=== PATIENT | female | born 1945 | race Caucasian/White ===

== ENCOUNTER → 2016-03-29 | Outpatient (REF) | payer MEDICARE, OTHER ==
[~2016-03-29] MED LIST: /WARF5TA PO; ASPI81TA85 PO; BISO5TAB5 PO; CALTTAB10 PO; D3-5CAP PO; FOLI1TAB86 PO; HYDR12.55 PO; HYDR200T2 PO; IMIP25TA2 PO; LEFL20TA PO; LOSA100T36 PO; OXYCO5TA PO; SPIR25TA2 PO; STOO100C PO; TRIL135C PO; VITAD1000T PO; XARE20TA PO; topiramate PO
[2016-03-29 14:40] LABS: PERCENT SATURATION 13.2 % (13.2-37.4)
[2016-03-30 10:26] LABS: CARCINOEMBRYONIC ANTIGEN 4.2 NG/ML (<2.5)
== END ==
LOC: M LAB REF 13:37
PROVIDERS: ATTEND Internal Medicine Medical Oncology
DX: C18.9 Malignant neoplasm of colon, unspecified (principal)

== ENCOUNTER → 2016-04-10 | Outpatient (REF) | payer MEDICARE, OTHER | LOC: M LAB REF 11:56 | PROVIDERS: ATTEND Nurse Practitioner Adult Health | DX: L40.59 Other psoriatic arthropathy (principal) ==

== ENCOUNTER → 2016-06-27 | Outpatient (REF) | payer MEDICARE, OTHER ==
[2016-06-27 13:46] LABS: FERRITIN 161 NG/ML (8-252); PERCENT SATURATION 15.5 % (13.2-37.4); TOTAL IRON BINDING CAPACITY 387 UG/DL (250-450); TOTAL PROTEIN 6.7 GM/DL (6.4-8.2)
[2016-06-27 13:54] LABS: VITAMIN B12 LEVEL 588 PG/ML
[2016-06-27 13:55] LABS: FOLATE 8.7 NG/ML
[2016-06-28 13:55] LABS: ALBUMIN 3.86 GM/DL (3.29-5.55); ALBUMIN % 57.6 % (55.8-66.1); GAMMA GLOBULIN % 12.2 % (11.1-18.8)
[2016-06-29 08:45] LABS: CARCINOEMBRYONIC ANTIGEN 4.9 NG/ML (<2.5)
== END ==
LOC: M LAB REF 13:04
PROVIDERS: ATTEND Internal Medicine Medical Oncology
DX: D64.9 Anemia, unspecified (principal); C18.9 Malignant neoplasm of colon, unspecified

== ENCOUNTER → 2016-06-28 | Outpatient (REF) | payer MEDICARE, OTHER | LOC: M LAB REF 11:07 | PROVIDERS: ATTEND Nurse Practitioner Adult Health | DX: R19.7 Diarrhea, unspecified (principal) ==

== ENCOUNTER → 2016-09-27 | Outpatient (REF) | payer MEDICARE, OTHER ==
[~2016-09-27] MED LIST changes: +AMLO25TA PO; +FERR325T3 PO; +VITA1CAP2 PO
[2016-09-27 17:43] LABS: PERCENT SATURATION 12.1 % (13.2-45.0)
[2016-09-28 11:50] LABS: CARCINOEMBRYONIC ANTIGEN 5.2 NG/ML (<2.5)
== END ==
LOC: M LAB REF 16:16
PROVIDERS: ATTEND Internal Medicine Medical Oncology
DX: C18.9 Malignant neoplasm of colon, unspecified (principal)

== ENCOUNTER → 2016-10-07 | Outpatient (CLI) | payer MEDICARE, OTHER ==
[2016-10-07 14:11] LABS: BASO % 0.8 % (0.0-1.0); LARGE UNSTAINED CELL # 0.1 K/mm3 (0.0-0.4); LARGE UNSTAINED CELL % 1.3 % (0.0-4.0); LYMPH # 0.5 K/mm3 (1.5-4.5); MEAN CORPUSCULAR VOLUME 103.1 fl (80.0-96.0); MONO # 0.3 K/mm3 (0.0-0.8); MONO % 4.8 % (0.0-5.0); NEUTROPHILS # 4.6 K/mm3 (1.8-7.7); NEUTROPHILS % 84.1 % (36.0-66.0); PLATELET COUNT, AUTOMATED 315 k/mm3 (150-450); RED CELL DISTRIBUTION WIDTH 13.1 % (11.5-14.5); WHITE BLOOD COUNT 5.5 K/mm3 (4.0-10.0)
[2016-10-07 14:42] LABS: ALBUMIN 3.7 GM/DL (3.2-5.2); ALBUMIN/GLOBULIN RATIO 1.06 (1.00-1.93); ALKALINE PHOSPHATASE 57 U/L (45-117); ALT/SGPT 25 U/L (12-78); ANION GAP 9 MEQ/L (8-16); AST/SGOT 23 U/L (15-37); BILIRUBIN,TOTAL 0.2 MG/DL (0.2-1.0); BLOOD UREA NITROGEN 31 MG/DL (7-18); CALCIUM LEVEL 8.8 MG/DL (8.8-10.2); CARBON DIOXIDE LEVEL 25 MEQ/L (21-32); CHLORIDE LEVEL 114 MEQ/L (98-107); CREATININE FOR GFR 1.21 MG/DL (0.55-1.02); GLOMERULAR FILTRATION RATE 47.1 (>45); GLUCOSE, FASTING 107 MG/DL (80-110); POTASSIUM SERUM 4.9 MEQ/L (3.5-5.1); SODIUM LEVEL 148 MEQ/L (136-145); TOTAL PROTEIN 7.2 GM/DL (6.4-8.2)
== END ==
LOC: M WUC 13:12
PROVIDERS: ATTEND Physician Assistant
DX: R42 Dizziness and giddiness (principal)

== ENCOUNTER → 2016-12-28 | Outpatient (REF) | payer MEDICARE, OTHER ==
[2016-12-28 14:24] LABS: PERCENT SATURATION 20.6 % (13.2-45.0)
== END ==
LOC: M LAB REF 13:07
PROVIDERS: ATTEND Internal Medicine Medical Oncology
DX: C18.9 Malignant neoplasm of colon, unspecified (principal)

== ENCOUNTER → 2017-05-30 | Outpatient (REF) | payer MEDICARE, OTHER ==
[2017-05-30 14:32] LABS: FERRITIN 104 NG/ML (8-252); IRON (FE) 38 UG/DL (50-170); PERCENT SATURATION 15.1 % (13.2-45.0); TOTAL IRON BINDING CAPACITY 252 UG/DL (250-450)
[2017-05-31 11:04] LABS: CARCINOEMBRYONIC ANTIGEN 4.6 NG/ML (<2.5)
== END ==
LOC: M LAB REF 13:25
DX: C18.9 Malignant neoplasm of colon, unspecified (principal)
CPT/HCPCS: 82378

== ENCOUNTER → 2017-06-21 | Outpatient (REF) | payer MEDICARE, OTHER ==
[2017-06-27 00:08] LABS: CALPROTECTIN STOOL <16 ug/g (0-120); FATS NEUTRAL Normal (.); FATS TOTAL Normal (.)
== END ==
LOC: M LAB REF 10:22
DX: D50.9 Iron deficiency anemia, unspecified (principal); Z85.038 Personal history of other malignant neoplasm of large intestine; K52.839 Microscopic colitis, unspecified; K25.9 Gastric ulcer, unspecified as acute or chronic, without hemorrhage or perforation; K21.9 Gastro-esophageal reflux disease without esophagitis; R14.1 Gas pain; R19.7 Diarrhea, unspecified; R12 Heartburn
CPT/HCPCS: 82705

== ENCOUNTER → 2017-07-22 | Outpatient (CLI) | payer MEDICARE, OTHER ==
[2017-07-22 10:28] LABS: ANION GAP 7 MEQ/L (8-16); BLOOD UREA NITROGEN 28 MG/DL (7-18); CALCIUM LEVEL 8.4 MG/DL (8.8-10.2); CARBON DIOXIDE LEVEL 26 MEQ/L (21-32); CHLORIDE LEVEL 112 MEQ/L (98-107); CREATININE FOR GFR 1.41 MG/DL (0.55-1.30); GLOMERULAR FILTRATION RATE 39.4 (>45); GLUCOSE, FASTING 93 MG/DL (70-100); POTASSIUM SERUM 4.2 MEQ/L (3.5-5.1); SODIUM LEVEL 145 MEQ/L (136-145)
== END ==
LOC: M LAB 09:07
DX: N18.3 Chronic kidney disease, stage 3 (moderate) (principal)
CPT/HCPCS: 80048

== ENCOUNTER → 2017-08-29 | Outpatient (REF) | payer MEDICARE, OTHER ==
[2017-08-29 14:41] LABS: FERRITIN 152 NG/ML (8-252); IRON (FE) 48 UG/DL (50-170); PERCENT SATURATION 19.8 % (13.2-45.0); TOTAL IRON BINDING CAPACITY 243 UG/DL (250-450)
[2017-08-30 10:07] LABS: CARCINOEMBRYONIC ANTIGEN 4.3 NG/ML (<2.5)
== END ==
LOC: M LAB REF 13:35
DX: C18.7 Malignant neoplasm of sigmoid colon (principal); C64.9 Malignant neoplasm of unspecified kidney, except renal pelvis
CPT/HCPCS: 82378

== ENCOUNTER → 2017-09-05 | Outpatient (CLI) | payer MEDICARE, OTHER ==
[~2017-09-05] MED LIST changes: -/WARF5TA PO; -AMLO25TA PO; -ASPI81TA85 PO; -BISO5TAB5 PO; -CALTTAB10 PO; -D3-5CAP PO; -FERR325T3 PO; -FOLI1TAB86 PO; +GASTROGRAFIN SOLUTION 30ML (Q9963) As Ordered; -HYDR12.55 PO; -HYDR200T2 PO; -IMIP25TA2 PO; +ISOVUE-370 76% 100ML VIAL (Q9967) As Ordered; -LEFL20TA PO; -LOSA100T36 PO; -OXYCO5TA PO; -SPIR25TA2 PO; -STOO100C PO; -TRIL135C PO; -VITA1CAP2 PO; -VITAD1000T PO; -XARE20TA PO; -topiramate PO
== END ==
LOC: M RAD 13:13
DX: C18.9 Malignant neoplasm of colon, unspecified (principal)
CPT/HCPCS: Q9963

== ENCOUNTER 2018-01-23 01:39 | Emergency (ER) | payer MEDICARE, OTHER ==
[2018-01-23 02:15] LABS: BASO # 0.1 10^3/uL (0.0-0.2); BASO % 0.5 % (0.0-1.0); EOS # 0.1 10^3/uL (0.0-0.50); EOS % 0.7 % (0.0-3.0); HEMATOCRIT 37.9 % (36.0-47.0); HEMOGLOBIN 11.6 g/dl (12.0-15.5); IMMATURE GRANULOCYTE % 0.6 % (0-3.0); LYMPH # 0.7 10^3/uL (1.5-4.5); MEAN CORPUSCULAR HEMOGLOBIN 31.4 pg (27.0-33.0); MEAN CORPUSCULAR HGB CONC 30.6 g/dl (32.0-36.5); MEAN CORPUSCULAR VOLUME 102.4 fl (80.0-96.0); MONO # 0.4 10^3/uL (0.0-0.8); NEUTROPHILS # 8.4 10^3/uL (1.8-7.7); NEUTROPHILS % 87.2 % (36.0-66.0); PLATELET COUNT, AUTOMATED 401 10^3/uL (150-450); RED CELL DISTRIBUTION WIDTH 12.7 % (11.5-14.5); WHITE BLOOD COUNT 9.6 10^3/uL (4.0-10.0)
[2018-01-23] MEDS: NS 500 ML IV (02:30)
[2018-01-23] MEDS: METOCLOPRAMIDE INJ 10MG/2ML VIAL (J2765) IV (02:30)
[2018-01-23] MEDS: MORPHINE 4 MG/ML 1ML VIAL/SYRINGE (J2270) IV (02:30)
[2018-01-23 02:37] LABS: INR 1.17; PROTHROMBIN TIME 15.1 SECONDS (12.1-14.4)
[2018-01-23 02:46] LABS: ALBUMIN 3.7 GM/DL (3.2-5.2); ALKALINE PHOSPHATASE 107 U/L (45-117); ALT/SGPT 21 U/L (12-78); ANION GAP 9 MEQ/L (8-16); AST/SGOT 21 U/L (7-37); BILIRUBIN,DIRECT < 0.1 MG/DL (0.0-0.2); BILIRUBIN,TOTAL 0.2 MG/DL (0.2-1.0); BLOOD UREA NITROGEN 22 MG/DL (7-18); CALCIUM LEVEL 8.8 MG/DL (8.8-10.2); CARBON DIOXIDE LEVEL 23 MEQ/L (21-32); CHLORIDE LEVEL 108 MEQ/L (98-107); CPK CREATINE PHOSPHOKINASE 174 U/L (26-192); CREATININE FOR GFR 1.18 MG/DL (0.55-1.30); GLOMERULAR FILTRATION RATE 48.2 (>39); GLUCOSE, FASTING 141 MG/DL (70-100); LIPASE 168 U/L (73-393); MB/CK RELATIVE INDEX 2.64 (< OR =4); SODIUM LEVEL 140 MEQ/L (136-145); TOTAL PROTEIN 7.4 GM/DL (6.4-8.2); TROPONIN I < 0.02 NG/ML (< 0.10)
[2018-01-23] MEDS ORDERED: ISOVUE-370 76% 100ML VIAL (Q9967) As Ordered (02:53)
[2018-01-23] MEDS ORDERED: traMADol 50 MG TAB (BULK 4 TAB ED) PO (04:15)
[2018-01-23] MEDS: LORazepam 2 MG/ML VIAL (J2060) IV (04:18)
== END 2018-01-23 04:24 | disposition home or self-care (01) ==
LOC: M ED 01:39
DX: S29.012A Strain of muscle and tendon of back wall of thorax, initial encounter (principal); X50.9XXA Other and unspecified overexertion or strenuous movements or postures, initial encounter; Y92.9 Unspecified place or not applicable; Y93.H1 Activity, digging, shoveling and raking; Y99.9 Unspecified external cause status; I10 Essential (primary) hypertension; K21.9 Gastro-esophageal reflux disease without esophagitis; D64.9 Anemia, unspecified; Z86.73 Personal history of transient ischemic attack (TIA), and cerebral infarction without residual deficits; Z86.718 Personal history of other venous thrombosis and embolism; Z85.038 Personal history of other malignant neoplasm of large intestine; L40.52 Psoriatic arthritis mutilans; N28.9 Disorder of kidney and ureter, unspecified; Z79.82 Long term (current) use of aspirin; Z79.899 Other long term (current) drug therapy; Z88.0 Allergy status to penicillin; Z88.2 Allergy status to sulfonamides; Z88.1 Allergy status to other antibiotic agents; Z88.8 Allergy status to other drugs, medicaments and biological substances; Z91.89 Other specified personal risk factors, not elsewhere classified
CPT/HCPCS: J2270

== ENCOUNTER → 2018-01-27 | Outpatient (REF) | payer MEDICARE, OTHER ==
[~2018-01-27] MED LIST changes: +/WARF5TA PO; +AMLO25TA PO; +ASPI81CH32 PO; +ASPI81TA85 PO; +BISO5TAB5 PO; +CALTTAB10 PO; +CYAN1000VL IM; +D 10CHW PO; +D3-5CAP PO; +DOXA1TAB41 PO; +FERR325T3 PO; +FOLI1TAB86 PO; +FURO20TA2 PO; -GASTROGRAFIN SOLUTION 30ML (Q9963) As Ordered; +HYDR12.55 PO; +HYDR200T2 PO; +IMIP25TA2 PO; +IMIP50TA3 PO; -ISOVUE-370 76% 100ML VIAL (Q9967) As Ordered; +LEFL20TA PO; +LOSA100T36 PO; +LOSA50TA73 PO; +OTEZ1TAB3 PO; +OXYC1TAB23 PO; +OXYCO5TA PO; +PANT20TA2 PO; +PROC10TA4 PO; +SPIR-10 PO; +SPIR25TA2 PO; +STOO100C PO; +TRIL135C PO; +VITA1CAP2 PO; +VITA250T50 PO; +VITAD1000T PO; +XARE20TA PO; +ZOFR4TAB14 SL; +topiramate PO
== END ==
LOC: M LAB REF 09:41
PROVIDERS: ATTEND Nurse Practitioner Adult Health
DX: R50.9 Fever, unspecified (principal)

== ENCOUNTER → 2018-04-24 | Outpatient (REF) | payer MEDICARE, OTHER ==
[~2018-04-24] MED LIST changes: -LOSA50TA73 PO; +LOSA50TA88 PO
== END ==
LOC: M LAB REF 12:27
PROVIDERS: ATTEND Physician Assistant
DX: R19.7 Diarrhea, unspecified (principal); R14.1 Gas pain; R14.0 Abdominal distension (gaseous); K52.839 Microscopic colitis, unspecified; K62.5 Hemorrhage of anus and rectum; K21.9 Gastro-esophageal reflux disease without esophagitis

== ENCOUNTER → 2018-05-13 | Outpatient (CLI) | payer MEDICARE, OTHER ==
[~2018-05-13] MED LIST changes: -/WARF5TA PO; -ASPI81CH32 PO; +ASPI81CH33 PO; +COUM1TAB17 PO; +OXYC-517 PO; -OXYCO5TA PO; +VITA-183 PO; -VITA1CAP2 PO
[2018-05-13 12:17] LABS: BASO % 0.4 % (0.0-1.0); EOS # 0.2 10^3/uL (0.0-0.50); EOS % 2.2 % (0.0-3.0); HEMATOCRIT 37.5 % (36.0-47.0); HEMOGLOBIN 11.4 g/dl (12.0-15.5); LYMPH # 0.8 10^3/uL (1.5-4.5); LYMPH % 11.2 % (24.0-44.0); MEAN CORPUSCULAR HEMOGLOBIN 31.2 pg (27.0-33.0); MEAN CORPUSCULAR HGB CONC 30.4 g/dl (32.0-36.5); MEAN CORPUSCULAR VOLUME 102.7 fl (80.0-96.0); MONO # 0.5 10^3/uL (0.0-0.8); MONO % 6.6 % (0.0-5.0); NEUTROPHILS # 5.8 10^3/uL (1.8-7.7); NEUTROPHILS % 79.1 % (36.0-66.0); PLATELET COUNT, AUTOMATED 294 10^3/uL (150-450); RED BLOOD COUNT 3.65 10^6/uL (4.00-5.40); WHITE BLOOD COUNT 7.3 10^3/uL (4.0-10.0)
[2018-05-13 12:27] LABS: INR 2.25; PROTHROMBIN TIME 25.3 SECONDS (12.1-14.4)
[2018-05-13 12:28] LABS: PARTIAL THROMBOPLASTIN TIME 44.7 SECONDS (25.4-37.6)
[2018-05-13 12:47] LABS: CREATININE FOR GFR 1.55 MG/DL (0.55-1.30); GLOMERULAR FILTRATION RATE 35.2 (>39); POTASSIUM SERUM 4.3 MEQ/L (3.5-5.1)
== END ==
LOC: M WUC 10:33
PROVIDERS: ATTEND Surgery Vascular Surgery
DX: Z01.818 Encounter for other preprocedural examination (principal); I73.9 Peripheral vascular disease, unspecified; D69.8 Other specified hemorrhagic conditions

== ENCOUNTER → 2018-10-01 | Outpatient (CLI) | payer MEDICARE, OTHER ==
[~2018-10-01] MED LIST changes: +AMLO5TAB6 PO; +BISO10TA10 PO; +ISOVUE-370 76% 100ML VIAL (Q9967) As Ordered ONE
--- NOTE | 2018-10-01 17:25 | REPVR ---
EXAM: CT Neck With Contrast EXAM DATE/TIME: 10/01/2018 3:29 PM CLINICAL HISTORY: 72 years old, female; Condition or disease; Cancer; Other: Tongue; Additional info: Malignant neoplasm of border of tongue TECHNIQUE: Imaging protocol: Axial computed tomography images of the neck with intravenous contrast. Radiation optimization: All CT scans at this facility use at least one of these dose optimization techniques: automated exposure control; mA and/or kV adjustment per patient size (includes targeted exams where dose is matched to clinical indication); or iterative reconstruction. Contrast material: ISOVUE 370; Contrast volume: 75 ml; Contrast route: IV; COMPARISON: PT PET/CT Skull/mid thigh 02/01/2016 5:37 PM FINDINGS: The patient's head is slightly tilted for the exam Nasopharynx: Normal. Oropharynx: There is asymmetric thickening of the left lateral margin of the tongue. There is loss of the normal fat plane the hyoglossus from the genioglossus on the left Hypopharynx: Normal. Larynx: This is effacement of the left vallecula at the base of the tongue. Retropharyngeal space: Normal. Submandibular/Parotid glands: Normal. Glands are normal in size. Thyroid: 1.6 cm nodule with a calcified rim in the right lobe of the thyroid without significant change from previous. Lymph nodes: Normal. No lymphadenopathy. Trachea: Visualized trachea is unremarkable. Lungs: Normal as visualized. Bones/joints: Generalized narrowing of the intervertebral disc spaces of the cervical spine with anterior and posterior marginal osteophytes, endplate sclerosis Soft tissues: Normal. No significant soft tissue swelling. IMPRESSION: 1. Asymmetric soft tissue thickening noted along the left lateral margin of the base of the tongue. No enlarged lymph nodes. 2. Stable right thyroid nodule COMMENT: In patients aged 35 years and older with an incidental thyroid nodule equal to or greater than 1.[address], MRI or extrathyroidal US, further evaluation with dedicated thyroid US is recommended for patients with normal life expectancy and without comorbidities. For smaller nodules without suspicious features, no further evaluation or follow up is recommended. Electronically signed by: Rody Bryan On 10/01/2018 17:24:36 PM
== END ==
LOC: M RAD 14:44
PROVIDERS: ATTEND Specialist
DX: C02.1 Malignant neoplasm of border of tongue (principal)
CPT/HCPCS: 70491; Q9967

== ENCOUNTER → 2018-10-07 | Outpatient (CLI) | payer MEDICARE, OTHER ==
[~2018-10-07] MED LIST changes: -ISOVUE-370 76% 100ML VIAL (Q9967) As Ordered ONE
--- NOTE | 2018-10-07 18:43 | REP ---
Body PET CT scan for malignant neoplasm border of tongue: Comparisons are the CT of the neck dated 10/01/2018. The and a prior PET scan dated 02/01/2016. The prior PET scan was for restaging of colon carcinoma. There were no hypermetabolic foci on the prior PET scan. Whole-body scanning is performed from the skull base to the upper thighs: Neck and supraclavicular areas: There is a hypermetabolic focus in the oropharynx on the left corresponding to the lesion identified along the left lateral margin of the tongue on the comparison CT. The maximal standard uptake value o is 8.5. There is a second focus in the oropharynx just posterior and inferior to this with a standard uptake value of 3.6, borderline hypermetabolic. There is uptake anteriorly in the maxilla to the left of midline, the standard uptake value is 9.45. This is nonspecific and could be from dental disease or neoplasm. On the comparison CT, here appears to be a dental implant in this location. There is another zone of hypermetabolic uptake related to maxilla and mandible on the left . The standard uptake value is 4.2. This may be related to dental procedures. Chest: There are no hypermetabolic foci. Abdomen, pelvis and upper thighs: There are no hypermetabolic foci. Impression: There is a hypermetabolic focus along the left lateral margin of the tongue corresponding to the abnormality on the comparison CT. There is a second borderline hypermetabolic focus just posterior and inferior to this. There is hypermetabolic activity in the maxilla and mandible, likely related to dental procedures. There are no other hypermetabolic foci. The study is performed with 9.03 mCi of F 18 FDG. Electronically Signed by Jerardo Adam MD 10/07/2018 06:34 P
== END ==
LOC: M PLARAD 12:34
PROVIDERS: ATTEND Specialist
DX: C02.1 Malignant neoplasm of border of tongue (principal)
CPT/HCPCS: 78815; A9552

== ENCOUNTER 2018-11-13 07:41 | Observation (INO) | payer MEDICARE, OTHER ==
[~2018-11-13] VITALS: Ht 152.4 cm; Wt 97.6 kg
[~2018-11-13 07:41] MED LIST changes: +OTEZ1TAB3
[2018-11-13] MEDS ORDERED: fentaNYL 250 MCG/5 ML INJECTION (J3010) As Ordered ONE (09:44)
[2018-11-13] MEDS ORDERED: MIDAZOLAM INJ 2 MG/2 ML VIAL (J2250) As Ordered ONE (09:44)
[2018-11-13] MEDS ORDERED: LIDOCAINE 2% INJ 100 MG/5 ML SDV (FOR ANES.) As Ordered ONE (09:47)
[2018-11-13] MEDS ORDERED: ROCURONIUM BROMIDE 50 MG/5 ML VIAL As Ordered ONE ×2 (09:47→13:07)
[2018-11-13] MEDS ORDERED: dexameTHASONE 4 MG/ML 1ML VIAL (J1100) As Ordered ONE (09:47)
[2018-11-13] MEDS ORDERED: ONDANSETRON 4MG/2ML VIAL (J2405) As Ordered ONE (09:47)
[2018-11-13] MEDS ORDERED: PROPOFOL 200 MG/20 ML VIAL As Ordered ONE (09:47)
[2018-11-13] MEDS ORDERED: GLYCOPYRROLATE INJ 0.2 MG/ML 2 ML VIAL As Ordered ONE (11:05)
[2018-11-13] MEDS ORDERED: LACRILUBE (AKWA TEARS) OPHTH OINT 3.5 GM As Ordered ONE (12:17)
[2018-11-13] MEDS ORDERED: LIDOCAINE W/EPINEPHRINE 1% 20ML VIAL As Ordered ONE (12:29)
[2018-11-13] MEDS ORDERED: CLINDAMYCIN INJ 900MG/6ML VIAL As Ordered ONE (12:32)
[2018-11-13] MEDS ORDERED: OXYMETAZOLINE NASAL SPRAY (AFRIN) As Ordered ONE (12:32)
[2018-11-13] MEDS ORDERED: BACITRACIN OINT 30GM As Ordered ONE (13:15)
[2018-11-13] MEDS ORDERED: SUGAMMADEX SODIUM 500 MG/5 ML VIAL (BRIDION) As Ordered ONE (13:36)
[2018-11-13] MEDS ORDERED: fentaNYL 100 MCG/2 ML INJECTION (J3010) IV PRN (14:15)
[2018-11-13] MEDS ORDERED: LR 1,000 ML IV SCH ×2 (14:15→15:00)
[2018-11-13] MEDS ORDERED: ONDANSETRON 4MG/2ML VIAL (J2405) IV PRN (14:15)
[2018-11-13] MEDS ORDERED: oxyCODONE 5MG TAB PO PRN (14:15)
--- NOTE | 2018-11-13 14:44 | RO ---
DATE OF PROCEDURE: 11/13/2018 PREPROCEDURE DIAGNOSIS: Carcinoma of the tongue. POSTPROCEDURE DIAGNOSIS: Carcinoma of the tongue. PROCEDURE: Hemiglossectomy, tongue reconstruction, left side, left supraomohyoid neck dissection. SURGEON: Dat Rivers MD RESEARCH [employer] SUPERVISOR: Dr. Mar ANESTHESIA: FINDINGS: The tumor measured 2.5 cm in diameter. I examined the area in the posterior both by palpation and examination, there was no evidence of any other tumor. DESCRIPTION OF PROCEDURE: The patient was prepped and draped in the usual manner. I marked out around the tumor by at least 1 cm margin. I then divided through the mucosa of the tongue, went medially around posteriorly, anteriorly and inferiorly, and went through the muscle. Bleeding was controlled with cautery or ties of 2-0 silk. I then, after going around it, resected the tumor. The tumor was resected and sent for frozen section. The biopsy margins all proved to be negative. I then moved to the neck. I marked out the skin incision. I infiltrated with Lidocaine and epinephrine. I divided subcutaneous at the platysma. I elevated the subplatysmal plane superiorly. Once that was done, I then dissected inferiorly and anteriorly and posteriorly. I started first posteriorly by identifying the posterior part of the sternocleidomastoid muscle. I dissected around this until I identified the internal jugular vein. Vessels seen along the way were divided using the Harmonic scalpel. I dissected inferiorly until I identified the omohyoid muscle, and then I followed the omohyoid muscle from posterior, inferior to superior. I then went up to the midline and then superiorly up to the mandible. I then dissected the soft tissues beneath the mandible on that left side. I then went posteriorly. On the submandibular gland, I made an incision inferiorly on the fascia. I elevated the tissue off of it. Then I dissected this plane and went between the mandible and the submandibular gland. I dissected from just above the submandibular gland anteriorly around, joining the dissection. I identified the facial artery and this was kept out of the way. Once this was done, I directed my attention posteriorly. I dissected the tissues off of the internal jugular vein. Posterior facial vein was identified as it entered into the jugular vein and I mobilized it and divided it and tied it off with 3-0 silk. Similarly, the anterior jugular vein I divided as well. I then went from inferior and superiorly. I dissected over the jugular vein until I identified the common carotid artery and then followed it superiorly. I dissected tissues off the carotid and anteriorly. Superiorly, I went between the submandibular gland and the internal jugular vein and divided the soft tissue there. I then dissected down to the gastric muscle, both anterior and posterior belly. I identified the posterior facial vein and I clamped and divided that off with 3-0 silk. I identified the lingual nerve and then the submandibular duct and divided the duct and then the submandibular nerve to the lingual nerve. Once this was done, everything looked good. The specimen was delivered. I irrigated to make sure that there was no bleeding. When there was no further bleeding, I put in a Jonn-Lopez drain through a separate stab wound. I closed the neck incision with 4-0 Vicryl and tatiana. Once this was done, I sutured the drain in with a 2-0 silk. Attention was then directed towards the mouth. I rotated the anterior tongue from the right side over towards the left side and closed the tongue in multiple layers using the 3-0 Vicryl suture. The patient tolerated the procedure well. Probably less than 50 mL estimated blood loss. The patient was extubated and then transferred to the recovery room in excellent condition. Dr. Mar held retractors and did part of the dissection, tied off blood vessels .
[2018-11-13 15:00] VITALS: BP 175/73
[2018-11-13] MEDS ORDERED: ENOXAPARIN 40 MG/0.4 ML SYRINGE (J1650) SC SCH (15:00)
[2018-11-13] MEDS ORDERED: FUROSEMIDE 20 MG TAB PO SCH (15:15)
[2018-11-13] MEDS: ACETAMINOPH W/CODEINE #3 TAB UD PO PRN ×2 (15:33→19:36)
[2018-11-13 16:00] VITALS: BP 150/70
[2018-11-13 17:05] VITALS: BP 148/67
[2018-11-13 18:00] VITALS: BP 140/62
[2018-11-13 19:00] VITALS: BP 147/60
[2018-11-13] MEDS: TOPIRAMATE (TopAMAX) 100 MG TAB PO SCH (20:04)
[2018-11-13] MEDS: OTEZLA 30 MG PO SCH (20:04)
[2018-11-13] MEDS: IMIPRAMINE 50 MG TAB PO SCH (20:04)
[2018-11-13] MEDS: CLINDAMYCIN 300 MG in IV 1 EA IV SCH (20:05)
[2018-11-13] MEDS: DOXAZOSIN MESYLATE 1 MG TAB PO SCH (20:05)
[2018-11-13] MEDS: ACETAMINOPHEN TAB 650MG DOSE (2X325MG) PO PRN (21:20)
[2018-11-13] MEDS ORDERED: MORPHINE 4 MG/ML 1ML VIAL/SYRINGE (J2270) IV PRN (21:45)
--- NOTE | 2018-11-13 21:57 | HPEPDOC ---
General Date of Admission 11/13/2018 Date of Service: Nov 13, 2018 Attending Physician: SUKHJINDER MOSES MD Chief Complaint The patient is a 73-year-old female admitted with a reason for visit of Squamous Cell Carcinoma Cancer Of Tongue. Source: Patient Exam Limitations: No limitations Timing/Duration: Other Severity: Other Associated Symptoms: Other History of Present Illness 73 yo woman with a history of a head and neck squamous cell carcinoma who is being admitted s/p hemiglossectomy, tongue reconstruction and left supraomohyoid neck dissection for observation post op. Her medical history is pertinent for a HTN, CVA in 1995, WILL, HLD, AICD, history of colon tumor? s/p resection. Her operative procedure went well without complications and minimal blood loss. When I saw her in the recovery room, she was awake, alert and answering all questions appropriately with a nasal canula in place and well controlled pain. Home Medications Scheduled Amlodipine Besylate (Amlodipine Besylate) 5 Mg Tablet, 5 MG PO DAILY, (Reported) Aspirin (Aspirin) 81 Mg Chw, 81 MG PO DAILY for pain, (Reported) Bisoprolol Fumarate (Bisoprolol Fumarate) 10 Mg Tablet, 10 MG PO DAILY, (Rep orted) Cyanocobalamin (Cyanocobalamin Injection) 1,000 Mcg/1 Ml Inj, 1,000 MCG IM once a month Doxazosin Mesylate (Doxazosin Mesylate) 2 Mg Tab, 1 TAB PO QPM, (Reported) Furosemide (Furosemide) 20 Mg Tab, 20 MG PO 2XW, (Reported) Imipramine HCl (Imipramine HCl) 50 Mg Tab, 50 MG PO BID, (Reported) Losartan Potassium (Losartan Potassium) 50 Mg Tab, 1 TAB PO DAILY, (Reported) Pantoprazole Sodium (Pantoprazole Sodium) 20 Mg Tab, 1 TAB PO DAILY, (Reported) Rivaroxaban (Xarelto) 20 Mg Tab, 20 MG PO DAILY, (Reported) Spironolactone (Spironolactone) 25 Mg Tab, 25 MG PO DAILY, (Reported) [topiramate] 1 TAB, 100 MG PO BID, (Reported) Miscellaneous Medications Apremilast (Otezla) 30 Mg Tablet, (Reported) Cholecalciferol (Vitamin D3) (Vitamin D3) 1,000 Unit Chw, 1,000 UNIT PO, (Reported) Allergies Coded Allergies: Penicillins (Verified Allergy, Severe, tongue swells, difficulty breathi ng, 10/30/18) Pt states they take amoxicillin for dental procedures Sulfa (Sulfonamide Antibiotics) (Verified Allergy, Severe, tongue swells, difficulty breathing, 10/30/18) Pt states was a long ago reaction. Has taken since without issue ketorolac (Verified Allergy, Severe, 10/30/18) benzocaine (Verified Allergy, Intermediate, rash, 10/30/18) nickel (Verified Allergy, Intermediate, blisters, 10/30/18) TAPE (Verified Allergy, Unknown, 10/30/18) calamine (Verified Allergy, Unknown, 05/08/18) Past Medical History Medical History Squamous cell carcinoma hypertension GERD psoriasis Migraines Surgical History Colon cancer resection Family History Significant Family History: No pertinent family hx Social History * Smoker: former Smoker Alcohol: Denies Drugs: denies Recent Travel/Sick Contacts: Denies: Recent travel, Recent sick contacts Psychosocial History: No pertinent psych hx A-FIB/CHADSVASC A-FIB History Current/History of A-Fib/PAF?: No Current PO Anticoag Therapy: Yes Age/Risk Factor Scoring CHADSVASC: CHADSVASC Response (Comments) Value Age Risk Factor Age 65-74 years old 1 Gender Risk Factor Female 1 Hx of HTN Yes 1 Hx of Stroke/TIA/or VTE Yes 2 Hx of Diabetes No 0 Hx of Vascular Disease Yes 1 Total 6 Treatment Treatment ordered: Rivaroxaban Review of Systems Constitutional: Denies: Chills, Fever, Night Sweats Eyes: Denies: Pain, Vision change ENT: Reports: Dysphagia Skin: Denies: Rash, Lesions, Breakdown Pulmonary: Denies: Dyspnea, Cough Cardiovascular: Denies: Chest Pain, Palpitations, Orthopnea, Paroxysmal Noc. Dyspnea, Lt Headedness Gastrointestinal: Denies: Nausea, Vomiting, Abdominal Pain, Diarrhea Genitourinary: Denies: Dysuria, Frequency, Incontinence, Retention Hematologic: Denies: Bruising, Bleeding Excessively Endocrine: Denies: Polydipsia, Polyphagia, Polyuria, Heat Intolerance, Cold Intolerance, Other Endocrine Sx Musculoskeletal: Denies: Neck Pain, Back Pain, Shoulder Pain, Arm Pain, Hand Pain, Leg Pain, Foot Pain, Joint Pain, Muscle Pain, Spasms, Other Symptoms Neurological: Denies: Weakness, Numbness, Change in speech, Confusion Psych: Reports: Mood Normal; Denies: Depression, Memory Issues Physical Examination General Exam: Positive: Alert, No Acute Distress Eye Exam: Positive: PERRLA, Conjunctiva & lids normal, EOMI; Negative: Sclera icteric ENT Exam: Positive: Other ENT (fresh stitches, no bleeding, minimal mouth opening from pain but is able to speak fluently) Chest Exam: Positive: Clear to auscultation, Normal air movement Heart Exam: Positive: Rate Normal, Regular Rhythm, Normal S1, Normal S2; Negative: Murmurs, Rubs Abdomen Exam: Positive: Normal bowel sounds, Soft; Negative: Tenderness, Hepatospenomegaly Extremity Exam: Positive: Normal pulses; Negative: Clubbing, Cyanosis, Edema Skin Exam: Positive: Nl turgor and temperature; Negative: Breakdown, Lesion Neuro Exam: Positive: Normal Speech, Sensation Intact, Cranial Nerves 3-12 NL, Reflexes 2+ Psych Exam: Positive: Mental status NL, Mood NL, Oriented x 3 Vital Signs Vital Signs Date Time Temp Pulse Resp B/P (MAP) Pulse Ox O2 Delivery O2 Flow Rate FiO2 11/13/18 19:36 97.0 80 18 147/60 98 2.0 Assessment/Plan 50 yo woman with a history of squamous cell carcinoma admitted for observation s/p hemiglossectomy, tongue reconstruction and left supraomohyoid neck dissection. Plan: Squamous cell carcinoma -s/p surgery with minimal blood loss and palsies not on exam and breathing comfortably on minimal nasal canula settings -continue clinda Q8H per surgery team -LR @ 100cc/hr while NPO -morphine 2Q6H PRN, may uptitrate as indicated for pain management Continue home meds below: Amlodipine Bisprolol Losartan Aldactone rivaroxaban Protonix Otezla Topamax Imipramine Doxazosin ASA DVT prophylaxis: on rivaroxaban Diet: NPO Plan / VTE VTE Prophylaxis Ordered?: Yes SUKHJINDER MOSES MD Nov 13, 2018 21:57
[2018-11-14] VITALS (7 sets, daily range): BP systolic 120–160; BP diastolic 56–87
[2018-11-14] MEDS: ACETAMINOPHEN TAB 650MG DOSE (2X325MG) PO PRN ×4 (03:41→18:34)
[2018-11-14] MEDS: ACETAMINOPH W/CODEINE #3 TAB UD PO PRN ×4 (03:42→18:35)
[2018-11-14] MEDS: CLINDAMYCIN 300 MG in IV 1 EA IV SCH ×3 (04:13→20:42)
[2018-11-14 05:36] LABS: MEAN CORPUSCULAR HEMOGLOBIN 32.5 pg (27.0-33.0); MEAN CORPUSCULAR HGB CONC 31.3 g/dl (32.0-36.5); MEAN CORPUSCULAR VOLUME 103.9 fl (80.0-96.0); PLATELET COUNT, AUTOMATED 226 10^3/uL (150-450); RED BLOOD COUNT 3.08 10^6/uL (4.00-5.40); WHITE BLOOD COUNT 7.4 10^3/uL (4.0-10.0)
[2018-11-14 06:05] LABS: CALCIUM LEVEL 8.6 MG/DL (8.8-10.2); CREATININE FOR GFR 1.07 MG/DL (0.55-1.30); GLOMERULAR FILTRATION RATE 53.8 (>39); POTASSIUM SERUM 3.6 MEQ/L (3.5-5.1)
[2018-11-14] MEDS: LOSARTAN 50 MG TAB PO SCH (10:33)
[2018-11-14] MEDS: VITAMIN D 1,000 INTERNATIONAL UNITS TABLET PO SCH (10:33)
[2018-11-14] MEDS: SPIRONOLACTONE 25 MG TAB PO SCH (10:33)
[2018-11-14] MEDS: ASPIRIN 81 MG CHEW TABLET PO SCH (10:33)
[2018-11-14] MEDS: TOPIRAMATE (TopAMAX) 100 MG TAB PO SCH ×2 (10:34→20:42)
[2018-11-14] MEDS: BISOPROLOL FUMARATE 10 MG TAB PO SCH (10:34)
[2018-11-14] MEDS: PANTOPRAZOLE 20 MG TAB PO SCH (10:34)
[2018-11-14] MEDS: IMIPRAMINE 50 MG TAB PO SCH ×2 (10:34→20:42)
[2018-11-14] MEDS: amLODIPine 5 MG TAB PO SCH (10:37)
[2018-11-14] MEDS: OTEZLA 30 MG PO SCH ×2 (10:43→20:42)
--- NOTE | 2018-11-14 14:46 | IPN ---
DATE: 11/14/2018 The patient complains of pain in the left ear, thought to be secondary to referred pain from recent surgery, according to Dr. Rivers, ENT. Slightly better with pain medication. Currently on Tylenol 650 every 4 hours and Tylenol with codeine. The patient is requesting to brush her teeth this morning but will have to clear with Dr. Rivers, ENT. Blood pressure 149 to 160 systolic. The patient denies any headache, changes in vision, chest pain, pressure, tightness or shortness of breath. PHYSICAL EXAMINATION: Temperature 97.9, pulse 63, respiratory rate 18, blood pressure 160/87, 100% on room air. GENERAL: The patient is awake, alert, oriented times three. Answering questions appropriately. No use of respiratory accessory muscles. The patient does have a surgical wound across the left side of the neck with stitches, no bleeding, some tenderness on palpation. She is unable to completely open her mouth due to pain that is transmitted. LUNGS: Clear to auscultation. No wheezing, rales or rhonchi. HEART: S1, S2. Sinus rhythm. ABDOMEN: Soft, nontender, nondistended. EXTREMITIES: No pitting edema. LABORATORY DATA: White count 7, hemoglobin 10, hematocrit 32, platelet count 226. Sodium 142, potassium 3.6, chloride 111, bicarbonate 24, BUN 19, creatinine 1, glucose 103, calcium 8.6. Pathology is pending. IMAGING STUDIES: 10/07/2018 PET scan showed hypermetabolic focus of the left lateral margin of the tongue corresponding to abnormality on comparison CT. Second borderline hypermetabolic focus posterior and inferior to this. There is hypermetabolic focus in the maxilla and mandible related to dental procedures. ASSESSMENT AND PLAN: This is a 73-year-old female with history of AICD, CVA, hypertension, obstructive sleep apnea with head and neck squamous cell cancer, status post hemiglossectomy and tongue reconstruction of left supraomohyoid neck dissection by Dr. Rivers. The patient was admitted for postoperative observation. No issues overnight aside from complaints of pain in her left ear. She is awake, alert, oriented. Per swallow therapist, the patient may have a pureed diet and thin liquids. Acute issues: 1. Squamous cell carcinoma, postoperative management per ENT, Dr. Rivers. Currently on clindamycin every 8 hours, IV fluids. She was nothing by mouth overnight, but anxious to eat this morning and is cleared for pureed and thin liquids. She is currently on morphine and Tylenol #3, as well as Tylenol. All other medications may be resumed. She is currently back on Xarelto, Norvasc, aspirin, Zebeta, vitamin D, spironolactone, Cozaar, Protonix, Topamax, Cardura. MTDD
[2018-11-14] MEDS ORDERED: BISACODYL 5 MG TAB PO ONE (17:15)
[2018-11-14] MEDS ORDERED: RIVAROXABAN 15 MG TAB (XARELTO) PO SCH (18:00)
[2018-11-14] MEDS: DOXAZOSIN MESYLATE 1 MG TAB PO SCH (20:42)
[2018-11-15] MEDS ORDERED: ONDANSETRON 4MG/2ML VIAL (J2405) IV ONE ×2 (02:45)
[2018-11-15] MEDS ORDERED: ONDANSETRON 4MG/2ML VIAL (J2405) As Ordered ONE (02:47)
[2018-11-15 04:00] VITALS: BP 115/55
[2018-11-15] MEDS: CLINDAMYCIN 300 MG in IV 1 EA IV SCH (05:11)
[2018-11-15] MEDS: ACETAMINOPHEN TAB 650MG DOSE (2X325MG) PO PRN ×2 (05:12→10:19)
[2018-11-15] MEDS: ACETAMINOPH W/CODEINE #3 TAB UD PO PRN ×2 (05:13→10:20)
[2018-11-15 05:56] LABS: HEMATOCRIT 33.9 % (36.0-47.0); HEMOGLOBIN 10.2 g/dl (12.0-15.5); MEAN CORPUSCULAR HEMOGLOBIN 31.8 pg (27.0-33.0); MEAN CORPUSCULAR HGB CONC 30.1 g/dl (32.0-36.5); MEAN CORPUSCULAR VOLUME 105.6 fl (80.0-96.0); PLATELET COUNT, AUTOMATED 237 10^3/uL (150-450); RED BLOOD COUNT 3.21 10^6/uL (4.00-5.40); WHITE BLOOD COUNT 8.5 10^3/uL (4.0-10.0)
[2018-11-15 06:18] LABS: CALCIUM LEVEL 8.9 MG/DL (8.8-10.2); CREATININE FOR GFR 1.01 MG/DL (0.55-1.30); GLOMERULAR FILTRATION RATE 57.5 (>39); POTASSIUM SERUM 4.1 MEQ/L (3.5-5.1)
[2018-11-15 08:00] VITALS: BP 105/56
--- NOTE | 2018-11-15 08:29 | IPN ---
DATE OF SERVICE: 11/15/2018 Patient is tolerating her diet, currently on puree. She has less pain at the left ear when she talks and eats. She is concerned about when to take a shower and whether the wound should be exposed. Awaiting Ear, Nose and Throat Dr. Rivers recommendations and visit today. Per previous plan, she was suppose to be discharged today but will defer to ENT. Vital signs: Temperature 97.4, pulse 60, respiratory rate 16, blood pressure 115/55, 100% on room air. Stitches in the neck left anterior aspect. Is clean, dry. No serous or bloody drainage. Left sided drain has slight pink, bloody drainage. No respiratory distress. Patient has normal air entry bilaterally in the lungs. Clear to auscultation. No wheezing, rales or rhonchi. Heart: S1, S1. Regular rate and rhythm. Abdomen is soft, nontender, nondistended. Positive bowel sounds. Extremities: No pitting edema. LABORATORY DATA: White count 8.5, hemoglobin 10, hematocrit 33, platelet count 237. Sodium 141, potassium 4.1, chloride 108, bicarbonate 27, BUN 20, creatinine 1, glucose 106. IMAGING STUDIES: None. ASSESSMENT AND PLAN: This is a 73-year-old female with squamous cell carcinoma of the tongue, automated implantable cardioverter defibrillator (AICD), cerebrovascular accident (CVA), hypertension, obstructive sleep apnea status post hemiglossectomy and tongue reconstruction of the left supraomohyoid neck dissection by Dr Rivers admitted for postop observation. Patient was advanced on her diet yesterday to puree. No other issues overnight. Squamous cell carcinoma of the head and neck status post hemiglossectomy and tongue reconstruction of the left supraomohyoid neck still on IV clindamycin every 8 hours. Patient is currently on puree diet, thin liquids, tolerating this well, on IV morphine for break through pain and Tylenol #3. Patient is resumed back on Xarelto 15 mg daily, aspirin 81 daily. DISPOSITION: Defer postop management and wound recommendations to Ear, Nose and Throat surgeon Dr. Rivers, possible discharge today. [facility]
[2018-11-15] MEDS ORDERED: BISACODYL 5 MG TAB PO SCH (09:00)
[2018-11-15 10:02] VITALS: BP 105/56
[2018-11-15] MEDS: BISOPROLOL FUMARATE 10 MG TAB PO SCH (10:02)
[2018-11-15] MEDS: IMIPRAMINE 50 MG TAB PO SCH (10:02)
[2018-11-15] MEDS: PANTOPRAZOLE 20 MG TAB PO SCH (10:02)
[2018-11-15] MEDS: TOPIRAMATE (TopAMAX) 100 MG TAB PO SCH (10:03)
[2018-11-15] MEDS: VITAMIN D 1,000 INTERNATIONAL UNITS TABLET PO SCH (10:03)
[2018-11-15] MEDS: ASPIRIN 81 MG CHEW TABLET PO SCH (10:03)
[2018-11-15] MEDS: amLODIPine 5 MG TAB PO SCH (10:03)
[2018-11-15] MEDS: LOSARTAN 50 MG TAB PO SCH (10:03)
[2018-11-15] MEDS: OTEZLA 30 MG PO SCH (10:04)
[2018-11-15] MEDS: SPIRONOLACTONE 25 MG TAB PO SCH (10:04)
[2018-11-15] MEDS ORDERED: CLEO300C2 PO (11:08)
[2018-11-15] MEDS ORDERED: ACET1TAB16 PO (11:08)
[2018-11-15] MEDS ORDERED: XARE15TA PO (11:08)
[2018-11-15] MEDS ORDERED: BACITAB PO (11:08)
--- NOTE | 2018-11-17 01:23 | DSES ---
DATE OF SDC: 11/13/2018 DATE OF ADMISSION: 11/14/2018 DATE OF DISCHARGE: 11/15/2018 EAR, NOSE, AND THROAT SURGEON: Dr. Dat Rivers PRIMARY DISCHARGE DIAGNOSES: Carcinoma of the tongue. Hemiglossectomy. Tongue reconstruction left side. Left supraomohyoid neck dissection; date of procedure 11/13/2018. History of CVA. Automatic implantable cardioverter-defibrillator (AICD). Hypertension. Obstructive sleep apnea. DISCHARGE MEDICATIONS: - clindamycin 300 mg three times daily - Bacid one tablet with meals for 7 days - Xarelto 15 mg daily - Tylenol #3 one tablet every 4 hours, maximum daily dose six, 3 days, dispense 12 tablets - Norvasc 5 daily - Otezla 30 mg - aspirin 81 daily - bisoprolol 10 daily - vitamin D 3000 units daily - cyanocobalamin injection once monthly - doxazosin one tablet daily at bedtime - Lasix 20 mg twice a week - imipramine 50 twice daily - losartan 50 mg daily - Protonix 20 daily - spironolactone 25 daily - Topamax 100 daily HOSPITAL COURSE: 73-year-old female with carcinoma of the tongue underwent left hemiglossectomy, tongue reconstruction, left supraomohyoid neck dissection, and was admitted for observation with a drain in and placed on IV antibiotics, clindamycin every 8 hours. She remained afebrile during the admission. White count was normal. Jonn-Lopez (QUIN) drain put out 85 mL and 100 mL. She remained with no acute issues and is discharged in stable condition. LABS ON DISCHARGE: White count 8.5, hemoglobin 10, hematocrit 33, platelet count 237. Sodium 141, potassium 4.1, chloride 108, bicarbonate 27, BUN 20, creatinine 1, glucose of 106. Pathology pending. TIME SPENT ON DISCHARGE: 30 minutes. [facility]
== END 2018-11-15 14:02 | disposition home or self-care (01) ==
LOC: M SDC 07:41 → M PCU 14:55 → M SDC 11-14 09:10 → M PCU 11-14 09:13
PROVIDERS: ADMIT General Practice; ATTEND Otolaryngology
DX: C02.9 Malignant neoplasm of tongue, unspecified (principal); I10 Essential (primary) hypertension; E78.49 Other hyperlipidemia; L40.9 Psoriasis, unspecified; K21.9 Gastro-esophageal reflux disease without esophagitis; G47.33 Obstructive sleep apnea (adult) (pediatric); I35.1 Nonrheumatic aortic (valve) insufficiency; I34.0 Nonrheumatic mitral (valve) insufficiency; R09.89 Other specified symptoms and signs involving the circulatory and respiratory systems; Z86.73 Personal history of transient ischemic attack (TIA), and cerebral infarction without residual deficits; Z95.810 Presence of automatic (implantable) cardiac defibrillator; G43.909 Migraine, unspecified, not intractable, without status migrainosus; Z85.038 Personal history of other malignant neoplasm of large intestine; Z87.891 Personal history of nicotine dependence; E66.9 Obesity, unspecified; Z79.82 Long term (current) use of aspirin; Z79.899 Other long term (current) drug therapy; Z88.0 Allergy status to penicillin; Z88.2 Allergy status to sulfonamides; Z88.8 Allergy status to other drugs, medicaments and biological substances
CPT/HCPCS: 36415; 38724; 41130; 80048; 85027; 88309; 88331; 88332; 92610; 97161; G0378; J1100; J2250; J2405; J3010

== ENCOUNTER → 2019-02-03 | Outpatient (CLI) | payer MEDICARE, OTHER ==
[~2019-02-03] MED LIST changes: +ACET1TAB16 PO; +BACITAB PO; +CLEO300C2 PO; +XARE15TA PO
--- NOTE | 2019-02-06 12:25 | REP ---
REASON FOR EXAM: Followup tongue base neoplasm. The prior exams were reviewed, the latest of which is dated 10/07/2018, which showed hypermetabolic activity along the left lateral margin of the tongue. After the intravenous administration of 8.85 mCi of FDG-18, triplane whole body PET/CT was performed from the skull base to the midthigh. By history, the patient has not undergone further chemotherapy since the last CT/PET exam. The hypermetabolic activity seen along the left lateral margin of the tongue has abated. There is, however, a single focus of hypermetabolic activity seen in the region of the tip of the tongue, which is unchanged from the prior exam, but does represent a change when compared to the 02/01/2016 exam. This is in an area extremely difficult to assess. The SUV values of this small focus are as high as 3.3. No other areas of abnormal hypermetabolic activity have developed in the neck, chest, abdomen, or pelvis. IMPRESSION: A small focus of hypermetabolic activity persists in the region of the tongue, as described above. I cannot confirm if this represents neoplastic activity since normal movement of the glossus during deglutition can simulate this finding. Clinical correlation and appropriate followup is recommended. Electronically Signed by Bassam Hamilton DO 02/06/2019 04:35 P
== END ==
LOC: M PLARAD 10:28
PROVIDERS: ATTEND Otolaryngology
DX: C02.1 Malignant neoplasm of border of tongue (principal)
CPT/HCPCS: 78815; A9552

== ENCOUNTER → 2019-04-23 | Outpatient (CLI) | payer MEDICARE, OTHER ==
[~2019-04-23] MED LIST changes: -BISO10TA10 PO; +BISO10TA14 PO; +ISOVUE-370 76% 100ML VIAL (Q9967) As Ordered ONE
--- NOTE | 2019-04-23 09:14 | REP ---
CT CHEST WITHOUT CONTRAST: Low-dose screening exam. HISTORY: Nicotine dependence. 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 Comparison is made with images from PET/CT study February 03, [address] studies of the chest from January 23, 2018 and June 06, 2014. FINDINGS: Digital preliminary elevator operator service radiograph is unremarkable. Vascular calcification is seen in the aortic arch. There is some left upper lobe linear fibrosis mild in degree. There is a granulomatous calcification in the left upper lobe on page 24 of 88 series 301 of today's study. This is unchanged from comparison studies including the 2014 exam. There is a noncalcified nodule which measures 4 mm in greatest diameter in the right middle lobe projected on today's study page 38 of 88. This it is also visible on the prior studies including the June 06, 2014 study. No new pulmonary nodule is appreciated. Exam is otherwise unremarkable. IMPRESSION: Lung RADS category 2 findings. Repeat lung cancer screening study would be indicated 1 year. Electronically Signed by Anton Pederson MD 04/23/2019 12:35 P
--- NOTE | 2019-04-23 09:19 | REPVR ---
PROCEDURE INFORMATION: Exam: CT Head Without And With Contrast Exam date and time: 04/23/2019 8:38 AM Age: 73 years old Clinical indication: Condition or disease; Cancer; Additional info: Stage i-ii oral tongue CA, HX of nicotine dependen TECHNIQUE: Imaging protocol: Computed tomography of the head without and with intravenous contrast. Radiation optimization: All CT scans at this facility use at least one of these dose optimization techniques: automated exposure control; mA and/or kV adjustment per patient size (includes targeted exams where dose is matched to clinical indication); or iterative reconstruction. Contrast material: ISOVUE 370; Contrast volume: 100 ml; Contrast route: IV; COMPARISON: CT Head without contrast 12/13/2016 11:04 AM FINDINGS: Brain: Mild generalized parenchymal atrophy and evidence of microvascular ischemic disease involving the periventricular and subcortical white matter bilaterally. Old lacunar infarct in the left thalamus. Encephalomalacia in the left temporal lobe. No enhancing intracranial masses. Ventricles: Normal. No ventriculomegaly. Bones/joints: Unremarkable. No acute fracture. Sinuses: Visualized sinuses are unremarkable. No fluid levels. Mastoid air cells: Visualized mastoid air cells are well aerated. Soft tissues: Unremarkable. IMPRESSION: No acute intracranial pathology. Electronically signed by: Khoa Briseno On 04/23/2019 09:19:30 AM
--- NOTE | 2019-04-23 09:31 | REPVR ---
PROCEDURE INFORMATION: Exam: CT Neck With Contrast Exam date and time: 04/23/2019 8:38 AM Age: 73 years old Clinical indication: Condition or disease; Cancer; Other: Tongue; Additional info: Stage i-ii oral tongue CA, HX of nicotine dependen TECHNIQUE: Imaging protocol: Computed tomography images of the neck with intravenous contrast. Radiation optimization: All CT scans at this facility use at least one of these dose optimization techniques: automated exposure control; mA and/or kV adjustment per patient size (includes targeted exams where dose is matched to clinical indication); or iterative reconstruction. Contrast material: ISOVUE 370; Contrast volume: 100 ml; Contrast route: IV; COMPARISON: CT Neck with contrast 10/01/2018 3:33 PM FINDINGS: Nasopharynx: Unremarkable. Oropharynx: Stable asymmetric soft tissue fullness at the left tongue base. Hypopharynx: Unremarkable. Larynx: Stable partial effacement of the left epiglottic vallecula. Retropharyngeal space: Unremarkable. Submandibular/Parotid glands: Normal. Glands are normal in size. Thyroid: Stable 1.9 cm heterogeneous low-attenuation lesion containing several calcifications in the right thyroid lobe. Suggest further characterization with thyroid ultrasound. Lymph nodes: Unremarkable. No lymphadenopathy. Trachea: Visualized trachea is unremarkable. Lungs: Unremarkable as visualized. Bones/joints: Severe multilevel degenerative disc disease and facet hypertrophy. Stenosis of the spinal canal at multiple levels most pronounced at C4-C5 and C5-C6. Marked bilateral neural foraminal stenosis most severe at C5-C6. Soft tissues: Unremarkable. No significant soft tissue swelling. IMPRESSION: Stable asymmetric soft tissue fullness at the left tongue base. Stable 1.9 cm heterogeneous low-attenuation lesion containing several calcifications in the right thyroid lobe. COMMENTS: Consistent with the [employer]'s Incidental Findings Committee white paper (J Am Maday Radiol 2015): In patients aged 35 years and older with an incidental thyroid nodule equal to or greater than 1.[address], MRI or extrathyroidal US, further evaluation with dedicated thyroid US is recommended for patients with normal life expectancy and without comorbidities. For smaller nodules without suspicious features, no further evaluation or follow up is recommended. Electronically signed by: Khoa Briseno On 04/23/2019 09:30:47 AM
== END ==
LOC: M RAD 08:23
PROVIDERS: ATTEND Internal Medicine Medical Oncology
DX: C02.9 Malignant neoplasm of tongue, unspecified (principal); Z87.891 Personal history of nicotine dependence
CPT/HCPCS: 70470; 70491; G0297; Q9967

== ENCOUNTER → 2019-10-06 | Outpatient (CLI) | payer MEDICARE, OTHER ==
[~2019-10-06] MED LIST changes: +AMLO1TAB24 PO; -AMLO5TAB6 PO; -ISOVUE-370 76% 100ML VIAL (Q9967) As Ordered ONE; +ISOVUE-370 76% 100ML VIAL As Ordered ONE; -PANT20TA2 PO; +PANT20TA6 PO
--- NOTE | 2019-10-06 11:18 | REPVR ---
PROCEDURE INFORMATION: Exam: CT Head Without And With Contrast Exam date and time: 10/06/2019 10:14 AM Age: 73 years old Clinical indication: Condition or disease; History of cancer (specify primary cancer site): ; Primary cancer: Skin; Additional info: Head/neck CA TECHNIQUE: Imaging protocol: Computed tomography of the head without and with intravenous contrast. Radiation optimization: All CT scans at this facility use at least one of these dose optimization techniques: automated exposure control; mA and/or kV adjustment per patient size (includes targeted exams where dose is matched to clinical indication); or iterative reconstruction. Contrast material: ISOVUE 370; Contrast volume: 75 ml; Contrast route: INTRAVENOUS (IV); COMPARISON: CT Head W/O FOLL BY WITH CONTR 04/23/2019 8:52 AM FINDINGS: Brain: There is no acute intracranial hemorrhage or mass effect. Mild diffuse volume loss is within the range of normal for patient age. There are small vessel ischemic changes within the periventricular and subcortical white matter, but the normal cardozo/white matter delineation is maintained. There are chronic lacunar infarcts within the left basal ganglia and left thalamus. There is left posterior and inferior temporal lobe encephalomalacia. There is no abnormal enhancement within the brain. Ventricles: Normal. No ventriculomegaly. Bones/joints: Unremarkable. No acute fracture. Sinuses: Visualized sinuses are unremarkable. No fluid levels. Mastoid air cells: Visualized mastoid air cells are well aerated. Soft tissues: Unremarkable. IMPRESSION: No acute abnormality. Electronically signed by: Kym Moreland On 10/06/2019 11:18:51 AM
--- NOTE | 2019-10-06 11:26 | REPVR ---
PROCEDURE INFORMATION: Exam: CT Neck With Contrast Exam date and time: 10/06/2019 10:14 AM Age: 73 years old Clinical indication: Condition or disease; Cancer; Other: Skin; Additional info: Head/neck CA TECHNIQUE: Imaging protocol: Computed tomography images of the neck with intravenous contrast. Radiation optimization: All CT scans at this facility use at least one of these dose optimization techniques: automated exposure control; mA and/or kV adjustment per patient size (includes targeted exams where dose is matched to clinical indication); or iterative reconstruction. Contrast material: ISOVUE 370; Contrast volume: 75 ml; Contrast route: INTRAVENOUS (IV); COMPARISON: CT Neck with contrast 04/23/2019 8:52 AM FINDINGS: Nasopharynx: Unremarkable. Oropharynx: Focal prominence of the left tongue base apparent on preceding examination has decreased in conspicuity. No significant tonsillar enlargement. Hypopharynx: Unremarkable. Larynx: Unremarkable. Normal epiglottis. Retropharyngeal space: Unremarkable. Submandibular/Parotid glands: The left submandibular gland is surgically absent. Thyroid: There is a stable complex 1.9 cm right thyroid lobe hypodense mass with calcifications there is a punctate left thyroid lobe hypodensity. Lymph nodes: Unremarkable. No lymphadenopathy. Trachea: Visualized trachea is unremarkable. Lungs: Unremarkable as visualized. Bones/joints: There is multilevel degenerative disc disease and spondylosis. Soft tissues: Unremarkable. No significant soft tissue swelling. IMPRESSION: 1. Previous fullness of the left tongue base is not identified on the current examination. 2. No acute abnormality. COMMENTS: Consistent with the [employer]'s Incidental Findings Committee white paper (J Am Maday Radiol 2015): In patients aged 35 years and older with an incidental thyroid nodule equal to or greater than 1.[address], MRI or extrathyroidal US, further evaluation with dedicated thyroid US is recommended for patients with normal life expectancy and without comorbidities. For smaller nodules without suspicious features, no further evaluation or follow up is recommended. Electronically signed by: Kym Moreland On 10/06/2019 11:27:00 AM
== END ==
LOC: M RAD 09:54
PROVIDERS: ATTEND Internal Medicine Medical Oncology
DX: C76.0 Malignant neoplasm of head, face and neck (principal)
CPT/HCPCS: 70470; 70491; Q9967

== ENCOUNTER → 2019-10-30 | Outpatient (REF) | payer MEDICARE, OTHER ==
[~2019-10-30] MED LIST changes: -ISOVUE-370 76% 100ML VIAL As Ordered ONE
== END ==
LOC: M LAB REF 16:29
PROVIDERS: ATTEND Physician Assistant
DX: Z11.2 Encounter for screening for other bacterial diseases (principal)

== ENCOUNTER → 2019-11-20 | Outpatient (REF) | payer MEDICARE, OTHER | LOC: M LAB REF 12:21 | PROVIDERS: ATTEND Nurse Practitioner Adult Health | DX: D51.9 Vitamin B12 deficiency anemia, unspecified (principal) ==

== ENCOUNTER → 2019-11-20 | Outpatient (REF) | payer MEDICARE, OTHER | LOC: M LAB REF 12:04 | PROVIDERS: ATTEND Nurse Practitioner Adult Health | DX: S81.802A Unspecified open wound, left lower leg, initial encounter (principal); X58.XXXA Exposure to other specified factors, initial encounter; Y92.89 Other specified places as the place of occurrence of the external cause ==

== ENCOUNTER → 2020-01-14 | Outpatient (REF) | payer MEDICARE, OTHER ==
[~2020-01-14] MED LIST changes: +D31000TA2 PO
== END ==
LOC: M LAB REF 12:18
PROVIDERS: ATTEND Nurse Practitioner Adult Health
DX: B34.8 Other viral infections of unspecified site (principal); Z20.828 Contact with and (suspected) exposure to other viral communicable diseases
CPT/HCPCS: 17000; 86769; G0463

== ENCOUNTER → 2020-01-29 | Outpatient (CLI) | payer MEDICARE, OTHER ==
--- NOTE | 2020-01-29 08:30 | REP ---
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 COMPARISON: None. TECHNIQUE: Multiple Doppler duplex images of the left lower extremity veins with the patient supine, with the table tipped and with the patient standing.. FINDINGS: Common femoral vein-there is reflux Anterior accessory greater saphenous vein-not present Greater saphenous vein at the saphenous/femoral junction-no reflux-4.8 mm diameter. Greater saphenous vein at mid thigh-no reflux-3.1 mm diameter Greater saphenous vein at knee-no reflux-3.1 mm diameter Superficial femoral vein proximal-there is reflux Superficial femoral vein mid-there is reflux. Superficial femoral vein distal-there is reflux Popliteal vein-there is reflux Lesser saphenous vein-no reflux-2.6 mm in diameter IMPRESSION: There is no reflux in the superficial system. Reflux is seen throughout the deep system including CF V, FV proximal to distal and popliteal vein. 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 No reflux is identified in the duplicated vein. <Electronically signed by Jerardo Adam > 01/29/20 [id number]
== END ==
LOC: M RAD 06:49
PROVIDERS: ATTEND Surgery
DX: I87.312 Chronic venous hypertension (idiopathic) with ulcer of left lower extremity (principal); L97.822 Non-pressure chronic ulcer of other part of left lower leg with fat layer exposed

== ENCOUNTER → 2020-08-19 | Outpatient (CLI) | payer MEDICARE, OTHER ==
[~2020-08-19] MED LIST changes: -VITA250T50 PO; +VITA250T7 PO
[2020-08-19 13:28] LABS: HEMOGLOBIN 12.3 g/dl (12.0-15.5); MEAN CORPUSCULAR HEMOGLOBIN 31.6 pg (27.0-33.0); MEAN CORPUSCULAR HGB CONC 30.8 g/dl (32.0-36.5); MEAN CORPUSCULAR VOLUME 102.8 fl (80.0-96.0); PLATELET COUNT, AUTOMATED 292 10^3/uL (150-450); RED BLOOD COUNT 3.89 10^6/uL (4.00-5.40); WHITE BLOOD COUNT 6.9 10^3/uL (4.0-10.0)
[2020-08-19 14:05] LABS: CALCIUM LEVEL 9.1 MG/DL (8.8-10.2); CREATININE FOR GFR 1.15 MG/DL (0.55-1.30); GLOMERULAR FILTRATION RATE 49.4 (>39); MAGNESIUM LEVEL 2.5 MG/DL (1.8-2.4); PERCENT SATURATION 25.5 % (13.2-45.0); POTASSIUM SERUM 5.4 MEQ/L (3.5-5.1)
[2020-08-19 14:10] LABS: TOTAL 25(OH) VITAMIN D 29.2 NG/ML (30.0-100.0)
== END ==
LOC: M PLALAB 10:47
PROVIDERS: ATTEND Nurse Practitioner Family
DX: R14.0 Abdominal distension (gaseous) (principal); K44.9 Diaphragmatic hernia without obstruction or gangrene; R19.7 Diarrhea, unspecified; K57.30 Diverticulosis of large intestine without perforation or abscess without bleeding; K21.9 Gastro-esophageal reflux disease without esophagitis; K25.9 Gastric ulcer, unspecified as acute or chronic, without hemorrhage or perforation; D50.9 Iron deficiency anemia, unspecified; E56.9 Vitamin deficiency, unspecified; Z85.038 Personal history of other malignant neoplasm of large intestine; Z86.010 Personal history of colon polyps; Z79.899 Other long term (current) drug therapy

== ENCOUNTER → 2020-09-20 | Outpatient (CLI) | payer MEDICARE, OTHER ==
[2020-09-20 10:15] LABS: HEMATOCRIT 38.4 % (36.0-47.0); HEMOGLOBIN 11.7 g/dl (12.0-15.5); MEAN CORPUSCULAR HEMOGLOBIN 31.8 pg (27.0-33.0); MEAN CORPUSCULAR HGB CONC 30.5 g/dl (32.0-36.5); MEAN CORPUSCULAR VOLUME 104.3 fl (80.0-96.0); PLATELET COUNT, AUTOMATED 271 10^3/uL (150-450); RED BLOOD COUNT 3.68 10^6/uL (4.00-5.40); WHITE BLOOD COUNT 6.3 10^3/uL (4.0-10.0)
== END ==
LOC: M WUC 08:51
PROVIDERS: ATTEND Nurse Practitioner Family
DX: D50.9 Iron deficiency anemia, unspecified (principal)

== ENCOUNTER → 2020-10-18 | Outpatient (REF) | payer MEDICARE, OTHER ==
[2020-10-18 12:49] LABS: PERCENT SATURATION 27.8 % (13.2-45.0)
== END ==
LOC: M LAB REF 11:22
PROVIDERS: ATTEND Nurse Practitioner Adult Health
DX: C18.9 Malignant neoplasm of colon, unspecified (principal)

== ENCOUNTER → 2020-11-16 | Outpatient (CLI) | payer MEDICARE, OTHER | LOC: M LAB 11:57 | PROVIDERS: ATTEND Nurse Practitioner Family | DX: Z53.9 Procedure and treatment not carried out, unspecified reason (principal); E56.9 Vitamin deficiency, unspecified ==

== ENCOUNTER → 2020-11-16 | Outpatient (CLI) | payer MEDICARE, OTHER ==
[~2020-11-16] MED LIST changes: +GASTROGRAFIN SOLUTION 30ML (Q9963) As Ordered ONE; +ISOVUE-370 76% 100ML VIAL As Ordered ONE
[2020-11-16 12:57] LABS: HEMATOCRIT 37.1 % (36.0-47.0); HEMOGLOBIN 11.5 g/dl (12.0-15.5); MEAN CORPUSCULAR VOLUME 103.3 fl (80.0-96.0); PLATELET COUNT, AUTOMATED 259 10^3/uL (150-450); RED BLOOD COUNT 3.59 10^6/uL (4.00-5.40); WHITE BLOOD COUNT 6.7 10^3/uL (4.0-10.0)
--- NOTE | 2020-11-16 14:09 | REP ---
INDICATION: COLON CA COMPARISON: 04/23/2019 the latest prior a low-dose screening CT examination of the lungs TECHNIQUE: Standard helical technique after the intravenous administration of 100 cc Isovue 370 FINDINGS: There is no mediastinal or hilar adenopathy. There are no pleural or pericardial effusions. The imaged upper abdomen is within normal limits. The imaged osseous structures are within normal limits for the patient's age. Evaluation of the lung lucio shows no change in the 4 mm size nodule in the right upper lobe. No new abnormal nodules, masses, or opacities have developed. IMPRESSION: Stable CT examination of the chest with findings as described above. There is no evidence of acute disease. <Electronically signed by Bassam Hamilton > 11/16/20 [id number]
--- NOTE | 2020-11-16 14:13 | REP ---
INDICATION: COLON CA. COMPARISON: 09/05/2017 the latest prior TECHNIQUE: Standard helical technique after the intravenous administration of 100 cc Isovue 370. Oral bowel preparatory contrast was also administered prior to the exam. FINDINGS: The liver, gallbladder, spleen, pancreas, adrenal glands, and kidneys are unchanged. There is cholelithiasis status quo. There is a stable left adrenal gland nodule. The abdominal aorta and para aortic regions are again seen to be within normal limits. There is calcific atherosclerotic change. There is no para-aortic adenopathy. There is no significant change in appearance of the bowel loops or the mesenteries. Descending colon diverticulosis is noted status quo. Postoperative changes are again seen involving the sigmoid colon status quo. There is a stable single enlarged left karina pelvic lymph node. There is no new pelvic adenopathy. There is no free fluid or free air. Bone window technique throughout the exam shows chronic spinal degenerative changes which appear to have progressed somewhat compared to the prior exam. IMPRESSION: No evidence of acute disease or significant change compared to the prior exam with findings as described above. <Electronically signed by Bassam Hamilton > 11/16/20 [id number]
== END ==
LOC: M RAD 12:00
PROVIDERS: ATTEND Nurse Practitioner Adult Health
DX: C18.9 Malignant neoplasm of colon, unspecified (principal)
CPT/HCPCS: 36415; 71260; 74177; 85027; Q9963; Q9967

== ENCOUNTER → 2021-11-08 | Outpatient (REF) | payer MEDICARE, OTHER ==
[~2021-11-08] MED LIST changes: -ACET1TAB16 PO; +ACET300T48 PO; -D31000TA2 PO; -GASTROGRAFIN SOLUTION 30ML (Q9963) As Ordered ONE; -ISOVUE-370 76% 100ML VIAL As Ordered ONE; +LOSA50TA28 PO; -LOSA50TA88 PO; -PROC10TA4 PO; +PROC10TA5 PO; +VITA100093 PO
[2021-11-08 14:32] LABS: PERCENT SATURATION 27.2 % (13.2-45.0)
[2021-11-08 15:20] LABS: PTH INTACT 48.9 PG/ML (18.5-88.0)
== END ==
LOC: M LAB REF 13:17
PROVIDERS: ATTEND Nurse Practitioner Adult Health
DX: C18.9 Malignant neoplasm of colon, unspecified (principal); N18.32 Chronic kidney disease, stage 3b; I10 Essential (primary) hypertension

== ENCOUNTER → 2022-01-16 | Outpatient (CLI) | payer MEDICARE, OTHER | LOC: M RAD 15:07 | PROVIDERS: ATTEND Nurse Practitioner | DX: C18.9 Malignant neoplasm of colon, unspecified (principal) ==

== ENCOUNTER → 2022-01-24 | Outpatient (CLI) | payer MEDICARE, OTHER ==
[~2022-01-24] MED LIST changes: +GASTROGRAFIN SOLUTION 30ML As Ordered ONE; +ISOVUE-370 76% 100ML VIAL As Ordered ONE
== END ==
LOC: M RAD 15:40
PROVIDERS: ATTEND Nurse Practitioner
DX: C18.9 Malignant neoplasm of colon, unspecified (principal); R91.1 Solitary pulmonary nodule
CPT/HCPCS: 71260; 74177; Q9963; Q9967

== ENCOUNTER → 2022-03-12 | Outpatient (CLI) | payer MEDICARE, OTHER ==
[~2022-03-12] MED LIST changes: +APRE30TA3; +APRE30TA3 PO; -GASTROGRAFIN SOLUTION 30ML As Ordered ONE; -ISOVUE-370 76% 100ML VIAL As Ordered ONE; -OTEZ1TAB3; -OTEZ1TAB3 PO
[2022-03-12 12:47] LABS: HEMATOCRIT 36.4 % (36.0-47.0); HEMOGLOBIN 10.6 g/dl (12.0-15.5); MEAN CORPUSCULAR HEMOGLOBIN 30.9 pg (27.0-33.0); MEAN CORPUSCULAR HGB CONC 29.1 g/dl (32.0-36.5); MEAN CORPUSCULAR VOLUME 106.1 fl (80.0-96.0); PLATELET COUNT, AUTOMATED 291 10^3/uL (150-450); RED BLOOD COUNT 3.43 10^6/uL (4.00-5.40); WHITE BLOOD COUNT 6.8 10^3/uL (4.0-10.0)
[2022-03-12 12:56] LABS: ALBUMIN 3.6 G/DL (3.2-5.2); BILIRUBIN,TOTAL 0.3 MG/DL (0.3-1.2); CALCIUM LEVEL 8.9 MG/DL (8.3-10.6); CREATININE FOR GFR 1.41 MG/DL (0.55-1.30); GLOMERULAR FILTRATION RATE 38.8 (>39); POTASSIUM SERUM 4.6 MMOL/L (3.5-5.1); TOTAL PROTEIN 6.8 G/DL (5.7-8.2)
== END ==
LOC: M WUC 08:59
PROVIDERS: ATTEND Nurse Practitioner
DX: C18.9 Malignant neoplasm of colon, unspecified (principal)

== ENCOUNTER → 2022-04-30 | Outpatient (CLI) | payer MEDICARE, OTHER ==
[~2022-04-30] MED LIST changes: +COLON HEALTH PO; +CYAN2500 SL; +FERR325T19 PO; +LOSA100T45 PO; +PANT40TA29 PO; +TOPI-254 PO
== END ==
LOC: M LABSMTC 10:24
PROVIDERS: ATTEND Anesthesiology
DX: Z20.822 Contact with and (suspected) exposure to COVID-19 (principal)

== ENCOUNTER 2022-05-03 09:40 | Day surgery (SDC) | payer MEDICARE, OTHER ==
[~2022-05-03] VITALS: Ht 152.4 cm; Wt 95.0 kg
[~2022-05-03 09:40] MED LIST changes: +NS 1,000 ML IV ONE
[2022-05-03] MEDS ORDERED: LIDOCAINE 2% 100MG/5ML SDV (FOR ANES.) As Ordered ONE (11:42)
[2022-05-03] MEDS ORDERED: propofoL 200 MG/20 ML VIAL As Ordered ONE (11:42)
[2022-05-03 13:05] VITALS: BP 151/62
== END 2022-05-03 13:14 | disposition home or self-care (01) ==
LOC: M OPP 09:40
PROVIDERS: ATTEND Surgery
DX: D12.6 Benign neoplasm of colon, unspecified (principal); K57.30 Diverticulosis of large intestine without perforation or abscess without bleeding; D50.9 Iron deficiency anemia, unspecified; K44.9 Diaphragmatic hernia without obstruction or gangrene; K21.00 Gastro-esophageal reflux disease with esophagitis, without bleeding; K22.89 Other specified disease of esophagus; Z86.010 Personal history of colon polyps; G47.33 Obstructive sleep apnea (adult) (pediatric); Z99.89 Dependence on other enabling machines and devices; Z87.891 Personal history of nicotine dependence; Z79.01 Long term (current) use of anticoagulants; Z79.2 Long term (current) use of antibiotics; Z79.52 Long term (current) use of systemic steroids; Z79.82 Long term (current) use of aspirin; Z79.83 Long term (current) use of bisphosphonates; Z79.899 Other long term (current) drug therapy

== ENCOUNTER → 2022-06-05 | Outpatient (CLI) | payer MEDICARE, OTHER ==
[~2022-06-05] MED LIST changes: -NS 1,000 ML IV ONE
[2022-06-05 13:00] LABS: BASO % 0.5 % (0.0-1.0); EOS # 0.1 10^3/uL (0.0-0.5); EOS % 1.3 % (0.0-3.0); HEMATOCRIT 38.6 % (36.0-47.0); HEMOGLOBIN 11.9 g/dl (12.0-15.5); LYMPH # 0.8 10^3/uL (1.5-5.0); LYMPH % 9.4 % (24.0-44.0); MEAN CORPUSCULAR HEMOGLOBIN 31.9 pg (27.0-33.0); MEAN CORPUSCULAR HGB CONC 30.8 g/dl (32.0-36.5); MEAN CORPUSCULAR VOLUME 103.5 fl (80.0-96.0); MONO # 0.6 10^3/uL (0.0-0.8); MONO % 6.8 % (2.0-8.0); NEUTROPHILS # 6.8 10^3/uL (1.5-8.5); NEUTROPHILS % 80.9 % (36.0-66.0); PLATELET COUNT, AUTOMATED 297 10^3/uL (150-450); RED BLOOD COUNT 3.73 10^6/uL (4.00-5.40); WHITE BLOOD COUNT 8.4 10^3/uL (4.0-10.0)
[2022-06-05 13:34] LABS: ALBUMIN 3.7 G/DL (3.2-5.2); BILIRUBIN,TOTAL 0.3 MG/DL (0.3-1.2); CALCIUM LEVEL 8.8 MG/DL (8.3-10.6); CREATININE FOR GFR 1.31 MG/DL (0.55-1.30); GLOMERULAR FILTRATION RATE 42.3 (>39); PERCENT SATURATION 23.3 % (13.2-45.0); POTASSIUM SERUM 4.5 MMOL/L (3.5-5.1); TOTAL PROTEIN 6.8 G/DL (5.7-8.2)
[2022-06-05 13:35] LABS: FERRITIN 68.7 NG/ML (7.3-270.7)
== END ==
LOC: M WUC 10:13
PROVIDERS: ATTEND Nurse Practitioner
DX: C18.9 Malignant neoplasm of colon, unspecified (principal)

== ENCOUNTER → 2022-08-23 | Outpatient (CLI) | payer MEDICARE, OTHER ==
[~2022-08-23] MED LIST changes: -LOSA100T45 PO; +LOSA100T46 PO
[2022-08-23 12:41] LABS: APPEARANCE, URINE HAZY (CLEAR); BACTERIA, URINE AUTO NEGATIVE (NEGATIVE); BILIRUBIN, URINE AUTO NEGATIVE (NEGATIVE); BLOOD, URINE BLOOD NEGATIVE (NEGATIVE); COLOR, URINE YELLOW (YELLOW); GLUCOSE, URINE (UA) AUTO NEGATIVE (NEGATIVE); KETONE, URINE AUTO TRACE mg/dL (NEGATIVE); LEUKOCYTE ESTERASE, URINE AUTO NEGATIVE (NEGATIVE); NITRITE, URINE AUTO NEGATIVE (NEGATIVE); PROTEIN, URINE AUTO NEGATIVE (NEGATIVE); RBC, URINE AUTO 2 /HPF (0-3); SPECIFIC GRAVITY URINE AUTO 1.024 (1.002-1.035); SQUAMOUS EPITHELIAL CELL UR AU 3 /HPF (0-6); UROBILINOGEN, URINE AUTO 0.2 mg/dL (0.0-2.0); WBC, URINE AUTO 2 /HPF (0-3)
[2022-08-23 13:00] LABS: TOTAL PROTEIN,RANDOM URINE 22.6 MG/DL (0.0-14.0)
[2022-08-23 13:06] LABS: CREATININE,RANDOM URINE 194.2 MG/DL
[2022-08-23 14:23] LABS: ALBUMIN 3.9 G/DL (3.2-5.2); CALCIUM LEVEL 8.6 MG/DL (8.3-10.6); CREATININE FOR GFR 1.2 MG/DL (0.55-1.30); GLOMERULAR FILTRATION RATE 46.8 (>39); PHOSPHORUS LEVEL 3.7 MG/DL (2.4-5.1); POTASSIUM SERUM 4.5 MMOL/L (3.5-5.1)
== END ==
LOC: M WUC 10:26
PROVIDERS: ATTEND Physician Assistant Medical
DX: N18.32 Chronic kidney disease, stage 3b (principal)

== ENCOUNTER → 2023-01-28 | Outpatient (CLI) | payer MEDICARE, OTHER ==
[~2023-01-28] MED LIST changes: +TOPI-21 PO; -TOPI-254 PO
[2023-01-28 18:07] LABS: BASO % 0.5 % (0.0-1.0); EOS # 0.2 10^3/uL (0.0-0.5); HEMATOCRIT 37.1 % (36.0-47.0); HEMOGLOBIN 11.4 g/dl (12.0-15.5); LYMPH # 0.8 10^3/uL (1.5-5.0); LYMPH % 9.4 % (24.0-44.0); MEAN CORPUSCULAR HEMOGLOBIN 31.7 pg (27.0-33.0); MEAN CORPUSCULAR HGB CONC 30.7 g/dl (32.0-36.5); MEAN CORPUSCULAR VOLUME 103.1 fl (80.0-96.0); MONO # 0.6 10^3/uL (0.0-0.8); MONO % 6.5 % (2.0-8.0); NEUTROPHILS # 6.9 10^3/uL (1.5-8.5); NEUTROPHILS % 81.2 % (36.0-66.0); PLATELET COUNT, AUTOMATED 366 10^3/uL (150-450); WHITE BLOOD COUNT 8.4 10^3/uL (4.0-10.0)
[2023-01-28 18:33] LABS: ALBUMIN 3.6 G/DL (3.2-5.2); BILIRUBIN,TOTAL 0.3 MG/DL (0.3-1.2); CALCIUM LEVEL 8.9 MG/DL (8.3-10.6); CREATININE FOR GFR 1.14 MG/DL (0.55-1.30); GLOMERULAR FILTRATION RATE 49.5 (>39); PERCENT SATURATION 20.8 % (13.2-45.0); POTASSIUM SERUM 4.2 MMOL/L (3.5-5.1); TOTAL PROTEIN 6.7 G/DL (5.7-8.2)
[2023-01-28 18:35] LABS: FOLATE 17.53 NG/ML (>5.4)
[2023-01-28 18:36] LABS: FERRITIN 128.4 NG/ML (7.3-270.7)
== END ==
LOC: M WUC 11:45
PROVIDERS: ATTEND Nurse Practitioner
DX: Z85.038 Personal history of other malignant neoplasm of large intestine (principal); D64.9 Anemia, unspecified

== ENCOUNTER → 2023-03-11 | Outpatient (CLI) | payer MEDICARE, OTHER | LOC: M PLARAD 07:34 | PROVIDERS: ATTEND Internal Medicine Hematology & Oncology | DX: C18.8 Malignant neoplasm of overlapping sites of colon (principal); Z53.9 Procedure and treatment not carried out, unspecified reason ==

== ENCOUNTER → 2023-03-11 | Outpatient (CLI) | payer MEDICARE, OTHER | LOC: M PLARAD 09:17 | PROVIDERS: ATTEND Internal Medicine Hematology & Oncology | DX: C18.8 Malignant neoplasm of overlapping sites of colon (principal) | CPT/HCPCS: 78815; A9552 ==

== ENCOUNTER → 2024-12-10 | Outpatient (REF) | payer MEDICARE, OTHER ==
[~2024-12-10] MED LIST changes: +CYAN250T5 PO; +IMIP50TA10 PO; -IMIP50TA3 PO; -VITA250T7 PO
[2024-12-10 17:39] LABS: IRON (FE) 66.0 UG/DL (50-170); PERCENT SATURATION 22.2 % (13.2-45.0); PHOSPHORUS LEVEL 4.2 MG/DL (2.4-5.1)
[2024-12-10 17:42] LABS: VITAMIN B12 LEVEL 412.0 PG/ML (211-911)
[2024-12-10 17:50] LABS: INR 1.63
== END ==
LOC: M LAB REF 17:19
PROVIDERS: ATTEND Nurse Practitioner Adult Health
DX: Z01.818 Encounter for other preprocedural examination (principal); N18.30 Chronic kidney disease, stage 3 unspecified; D51.9 Vitamin B12 deficiency anemia, unspecified; Z79.01 Long term (current) use of anticoagulants

== ENCOUNTER → 2025-01-20 | Outpatient (CLI) | payer MEDICARE, OTHER | LOC: M RAD 12:37 | PROVIDERS: ATTEND Nurse Practitioner Family | DX: R60.0 Localized edema (principal) ==